=== PATIENT | female | born 1955 ===

== ENCOUNTER 2018-01-22 12:43 | Observation (INO) | payer MEDICAID ==
[2018-01-22 12:52] VITALS: BMI 21.9
[2018-01-22] MEDS ORDERED: Albuterol 0.083% Inhal Sol (2.5 mg/3 mL) UD INH STA (13:23)
[2018-01-22] MEDS ORDERED: cefTRIAXone IV 1 gm in Dextros 50 ML IV STA (13:23)
--- NOTE | 2018-01-22 13:23 | C.PDOC ---
History Of Present Illness COUGH, JACOBSON, PLEURITIC PAIN SUBJ FEVER X 1 WEEK. DENIES HO ASTHMA, COPD, SMOKING. NO LEG SWELL EXAM NARD NONTOXIC HEENT NEG LUNGS NEG NO EDEMA REMAINDER NEG Time Seen by Provider: 01/22/18 13:12 Chief Complaint (Nursing): Cough, Cold, Congestion History Per: Patient History/Exam Limitations: no limitations Current Symptoms Are (Timing): Still Present Past Medical History Reviewed: Historical Data, Nursing Documentation, Vital Signs Vital Signs: Last Vital Signs Temp 98.7 F 01/22/18 16:14 Pulse 74 01/22/18 16:14 Resp 22 01/22/18 16:14 BP 126/67 01/22/18 16:14 Pulse Ox 91 L 01/22/18 16:21 - Medical History PMH: HTN, Hypercholesterolemia, Hypothyroidism Family History: States: No Known Family Hx - Social History Hx Alcohol Use: No Hx Substance Use: No - Immunization History Hx Tetanus Toxoid Vaccination: No Hx Influenza Vaccination: No Hx Pneumococcal Vaccination: No Review Of Systems Constitutional: Positive for: Fever Cardiovascular: Negative for: Palpitations, Edema, Light Headedness Respiratory: Positive for: Cough, SOB with Excertion, Pleuritic Pain Gastrointestinal: Negative for: Vomiting Musculoskeletal: Negative for: Leg Pain Neurological: Negative for: Weakness, Numbness, Headache, Dizziness Physical Exam - Physical Exam Appears: Non-toxic, No Acute Distress Skin: Normal Color, Warm, Dry, No Rash Head: Atraumatic, Normacephalic Eye(s): bilateral: PERRL Nose: Normal Oral Mucosa: Moist Lips: Normal Appearing Neck: Normal ROM Cardiovascular: Rhythm Regular, No Murmur Respiratory: Normal Breath Sounds, No Accessory Muscle Use Extremity: Normal ROM, No Pedal Edema, No Deformity, No Swelling Neurological/Psych: Oriented x3, Normal Speech ED Course And Treatment - Laboratory Results Result Diagrams: 01/22/18 13:40 01/22/18 13:40 ECG: Interpreted By Me, Viewed By Me ECG Rhythm: Sinus Rhythm ECG Interpretation: No Acute Changes Rate From EC O2 Sat by Pulse Oximetry: 91 (RA) Pulse Ox Interpretation: Abnormal - Radiology CXR: Interpreted by Me CXR Interpretation: Yes: No Acute Disease Progress - Re-Evaluation Re-evaluation Note: 01/22/18 15:31 PERSIST HYPOXIA, IMPROVES W O2. PT NOW ADMITS TO HO SMOKING BUT STOPPED "A LONG TIME AGO". AGREES W ADMISSION. PMD IN [facility] 01/22/18 15:49 D/W DR VALDEZ HAMMONDS [employer] WILL ADMIT - Data Reviewed Data Reviewed: Lab, Diagnostic imaging, Old records - Continuity of Care Discussed patient case with:: Patient, On-call PMD-pt unassigned Disposition Counseled Patient/Family Regarding: Studies Performed, Diagnosis - Disposition Disposition: HOSPITALIZED Disposition Time: 15:50 Condition: STABLE - POA Present On Arrival: None - Clinical Impression Clinical Impression: Bronchitis, Hypoxia - Scribe Statement The provider has reviewed the documentation as recorded by the Scribe (Placido Metcalf) All medical record entries made by the Scribe were at my direction and personally dictated by me. I have reviewed the chart and agree that the record accurately reflects my personal performance of the history, physical exam, medical decision making, and the department course for this patient. I have also personally directed, reviewed, and agree with the discharge instructions and disposition. Decision To Admit - Pt Status Changed To: Hospital Disposition Of: Observation - . Bed Request Type: Regular Admitting Physician: Vicki Greenberg Patient Diagnosis: Bronchitis, Hypoxia
[2018-01-22] MEDS ORDERED: cefTRIAXone IV 1 gm in Dextros 50 ML IVPB ONE (13:32)
[2018-01-22] MEDS ORDERED: Albuterol 0.083% Inhal Sol (2.5 mg/3 mL) UD ONE (13:32)
--- NOTE | 2018-01-22 13:33 | RAD ---
PROCEDURE: CHEST RADIOGRAPH, 1 VIEW HISTORY: Cough and hypoxia COMPARISON: None available. FINDINGS: LUNGS: The lungs are hyperinflated and there is peribronchial thickening with chronic changes in both lungs. No focal consolidation. PLEURA: No pneumothorax or pleural fluid seen. CARDIOVASCULAR: The heart is normal in size. Atherosclerotic aortic arch calcifications are present. OSSEOUS STRUCTURES: No significant abnormalities. VISUALIZED UPPER ABDOMEN: Normal. OTHER FINDINGS: None. IMPRESSION: No active pulmonary disease. COPD.
[2018-01-22] MEDS ORDERED: Azithromycin 500mg/250ML NS 500 MG/250 ML BAG IV STA (13:38)
[2018-01-22 13:45] LABS: BASO % 0.4 % (0.0-2.0); EOS # 0.3 K/uL (0.0-0.7); EOS % 4.4 % (0.0-4.0); HEMOGLOBIN 15.1 g/dL (11.0-16.0); LYMPH % 32.1 % (20.0-40.0); MEAN CELL VOLUME 91.7 fL (81.0-99.0); MEAN CORPUSCULAR HEMOGLOBIN 30.7 pg (27.0-31.0); MEAN CORPUSCULAR HGB CONC 33.5 g/dL (33.0-37.0); MEAN PLATELET VOLUME 8.5 fL (7.2-11.7); MONO # 0.4 K/uL (0.0-0.8); MONO % 7.1 % (0.0-10.0); NEUT # 3.5 K/uL (1.8-7.0); NRBC % 0.2 % (0.0-2.0); RBC 4.92 Mil/uL (3.80-5.20); RED CELL DISTRIBUTION WIDTH 14.1 % (11.5-14.5); WHITE BLOOD COUNT 6.3 K/uL (4.8-10.8)
[2018-01-22 13:59] LABS: ALB/GLOB RATIO 1.1 (1.0-2.1); ALBUMIN 4.1 g/dL (3.5-5.0); ALT/SGPT 16 U/L (9-52); AST/SGOT 33 U/L (14-36); BLOOD UREA NITROGEN 10 mg/dL (7-17); CALCIUM 9.4 mg/dl (8.6-10.4); GFR AFRICAN-AMERICAN > 60; GFR NON-AFRICAN AMERICAN > 60
[2018-01-22 17:41] VITALS: RESP 20
[2018-01-22] MEDS ORDERED: Azithromycin 500 MG in Sodium Chloride 0.9% 250 ML IVPB SCH (18:00)
[2018-01-22] MEDS ORDERED: Azithromycin 500mg/250ML NS 500 MG/250 ML BAG IVPB SCH (18:00)
[2018-01-22] MEDS: MethylPREDNISolone 40 mg Vial IV SCH (18:11)
[2018-01-22] MEDS: Albuterol-Ipratrop 3 mg / 0.5 (3 ml) UD INH SCH (23:55)
[2018-01-23] MEDS: MethylPREDNISolone 40 mg Vial IV SCH ×3 (01:57→17:17)
[2018-01-23] MEDS: Albuterol-Ipratrop 3 mg / 0.5 (3 ml) UD INH SCH ×5 (03:34→19:00)
[2018-01-23] MEDS: Enoxaparin 40 mg Syringe SC SCH (09:07)
--- NOTE | 2018-01-23 09:11 | CP.PCM.PN ---
Subjective - Date & Time of Evaluation Date of Evaluation: 01/23/18 Time of Evaluation: 09:02 - Subjective Subjective: PGY2 note for Dr. Greenberg's service: Pt seen and examined at bedside. Nursing reports no acute events overnight. Patient states her cough and breathing has improved since receiving IV steroids and breathing treatments. However when patient walked around the department she desaturated to 86% and had coughing fit. Patient admits rib pain with cough. Denies fever, chills, chest pain, dizziness, dyspnea at rest. ____ Patient is a 62yo female, with PMHx of HTN, hyperlipidemia, COPD, reports she has had c/o cough and congestion with fever x 6 days. Initially had clear phlegm for first three days. Also reports chest pain with coughing. Objective - Vital Signs/Intake and Output Vital Signs (last 24 hours): Temp Pulse Resp BP Pulse Ox 98.2 F 79 20 121/66 96 01/23/18 07:51 01/23/18 07:51 01/23/18 07:51 01/23/18 07:51 01/23/18 08:00 - Medications Medications: Current Medications Albuterol/Ipratropium (Duoneb 3 Mg/0.5 Mg (3 Ml) Ud) 3 ml INH RQ4 [facility] Last Admin: 01/23/18 07:10 Dose: 3 ml Enoxaparin Sodium (Lovenox) 40 mg SC DAILY [facility] Ceftriaxone Sodium (Rocephin Iv 1 Gm Duplex) 50 mls @ 100 mls/hr IVPB DAILY [facility] PRN Reason: Protocol Azithromycin 500 mg/ Sodium (Chloride) 250 mls @ 167 mls/hr IVPB Q24H [facility] PRN Reason: Protocol Methylprednisolone (Solu-Medrol) 40 mg IV Q8H [facility] Last Admin: 01/23/18 01:57 Dose: 40 mg - Labs Labs: 01/22/18 13:40 01/22/18 13:40 - Constitutional Appears: Non-toxic, No Acute Distress - Head Exam Head Exam: ATRAUMATIC, NORMAL INSPECTION - Eye Exam Eye Exam: EOMI. absent: Scleral icterus Pupil Exam: PERRL - ENT Exam ENT Exam: Mucous Membranes Moist - Neck Exam Neck Exam: Full ROM - Respiratory Exam Respiratory Exam: Wheezes, NORMAL BREATHING PATTERN - Cardiovascular Exam Cardiovascular Exam: REGULAR RHYTHM, +S1, +S2 - GI/Abdominal Exam GI & Abdominal Exam: Soft, Normal Bowel Sounds. absent: Tenderness - Extremities Exam Extremities Exam: Normal Inspection - Back Exam Back Exam: absent: CVA tenderness (L), CVA tenderness (R) - Neurological Exam Neurological Exam: Alert, Awake, Oriented x3 - Psychiatric Exam Psychiatric exam: Normal Affect, Normal Mood - Skin Skin Exam: Normal Color, Warm Assessment and Plan - Assessment and Plan (Free Text) Plan: Bronchitis vs COPD exac Observe on tele Afebrile, No WBC Denies home oxygen; former smoker Patient desaturated to 87%/coughing fit after walking around nursing station CXR (01/22/18): NAD Solumedrol 40mg IV Q8H Duonebs Q4H Robitussin PO Q4H PRN Discontinue Ceftriaxone, Azithromycin HTN Well-controlled Amlodipine 5mg PO daily Hyperthyroidism Methimazole 10mg PO Daily Prophylaxis Lovenox 40mg SC Daily SCDs GI not indicated Disposition: Pt for possible dc tomorrow if no desaturation with walking, less coughing. If same, will consider CT. Darwin Iniguez PGY-2 D/w Dr. Greenberg
[2018-01-23] MEDS ORDERED: cefTRIAXone IV 1 gm in Dextros 50 ML IVPB SCH (10:00)
[2018-01-23] MEDS ORDERED: Azithromycin 500 MG in Sodium Chloride 0.9% 250 ML IVPB SCH (18:00)
[2018-01-23] MEDS ORDERED: guaiFENesin 100 mg/5 ml Syrup UD PO PRN (18:53)
[2018-01-24] MEDS: Albuterol-Ipratrop 3 mg / 0.5 (3 ml) UD INH SCH ×3 (00:28→07:45)
[2018-01-24] MEDS: MethylPREDNISolone 40 mg Vial IV SCH ×2 (01:44→09:21)
--- NOTE | 2018-01-24 06:14 | HP ---
HISTORY OF PRESENT ILLNESS: This is a 62-year-old female with history of COPD, chief complain cough, shortness of breath, wheezing, fatigue, tiredness. The patient came to the ER, advised admission. PHYSICAL EXAMINATION: GENERAL: The patient is awake, alert, and oriented . VITAL SIGNS: Temperature 98 and pulse 90. HEENT: Within normal limits. NECK: Supple. CHEST: Symmetrical bilateral wheezing. HEART: Regular. ABDOMEN: Soft. EXTREMITIES: No edema. IMPRESSION: The patient has exacerbation of chronic obstructive pulmonary disease with bronchitis. Vicki Greenberg MD
[2018-01-24 06:23] LABS: BASO % 0.3 % (0.0-2.0); HEMOGLOBIN 13.8 g/dL (11.0-16.0); LYMPH # 0.6 K/uL (1.0-4.3); LYMPH % 6.4 % (20.0-40.0); MEAN CELL VOLUME 91.5 fL (81.0-99.0); MEAN CORPUSCULAR HEMOGLOBIN 31.1 pg (27.0-31.0); MEAN PLATELET VOLUME 8.2 fL (7.2-11.7); MONO # 0.3 K/uL (0.0-0.8); MONO % 2.9 % (0.0-10.0); NEUT # 9.1 K/uL (1.8-7.0); NEUT % 90.4 % (50.0-75.0); PLATELET COUNT 203 K/uL (130-400); RBC 4.43 Mil/uL (3.80-5.20); RED CELL DISTRIBUTION WIDTH 14.2 % (11.5-14.5)
[2018-01-24 06:37] LABS: ALB/GLOB RATIO 1.3 (1.0-2.1); ALT/SGPT 13 U/L (9-52); AST/SGOT 31 U/L (14-36); BLOOD UREA NITROGEN 18 mg/dL (7-17); CALCIUM 9.4 mg/dl (8.6-10.4); GFR AFRICAN-AMERICAN > 60; GFR NON-AFRICAN AMERICAN > 60
[2018-01-24 07:30] VITALS: BP 107/62; PULSE 90; TEMP 97.7; O2SAT 95
--- NOTE | 2018-01-24 09:01 | CP.PCM.PN ---
Subjective - Date & Time of Evaluation Date of Evaluation: 01/24/18 Time of Evaluation: 10:40 - Subjective Subjective: PGY 2 Medicine Progress Note- Dr. Greenberg's service Patient seen and examined in no apparent acute distress. Patient states that she feels better. She denies acute complaints. She feels ready to go home. Objective - Vital Signs/Intake and Output Vital Signs (last 24 hours): Temp Pulse Resp BP Pulse Ox 97.7 F 90 20 107/62 95 01/24/18 07:27 01/24/18 07:27 01/24/18 07:27 01/24/18 07:27 01/24/18 07:27 Intake and Output: 01/24/18 01/24/18 06:59 18:59 Intake Total 300 Output Total 400 Balance -100 - Medications Medications: Current Medications Albuterol/Ipratropium (Duoneb 3 Mg/0.5 Mg (3 Ml) Ud) 3 ml INH RQ4 [facility] Last Admin: 01/24/18 07:45 Dose: 3 ml Amlodipine Besylate (Norvasc) 5 mg PO DAILY [facility] Enoxaparin Sodium (Lovenox) 40 mg SC DAILY [facility] Last Admin: 01/23/18 09:07 Dose: 40 mg Guaifenesin (Robitussin) 100 mg PO Q4H PRN PRN Reason: Cough Methimazole (Tapazole) 10 mg PO DAILY [facility] Methylprednisolone (Solu-Medrol) 40 mg IV Q8H [facility] Last Admin: 01/24/18 01:44 Dose: 40 mg Pneumococcal Polyvalent Vaccine (Pneumovax 23 Vaccine) 0.5 ml IM .ONCE ONE Stop: 01/24/18 10:01 - Labs Labs: 01/24/18 06:15 01/24/18 06:15 - Constitutional Appears: Non-toxic, No Acute Distress - Head Exam Head Exam: ATRAUMATIC, NORMAL INSPECTION - Eye Exam Eye Exam: EOMI, Normal appearance, PERRL Pupil Exam: NORMAL ACCOMODATION - ENT Exam ENT Exam: Mucous Membranes Moist - Neck Exam Neck Exam: Full ROM - Respiratory Exam Respiratory Exam: NORMAL BREATHING PATTERN. absent: Wheezes - Cardiovascular Exam Cardiovascular Exam: +S1, +S2 - GI/Abdominal Exam GI & Abdominal Exam: Soft, Normal Bowel Sounds - Extremities Exam Extremities Exam: Full ROM, Normal Inspection - Back Exam Back Exam: Full ROM, NORMAL INSPECTION - Neurological Exam Neurological Exam: Alert, Awake, Oriented x3 - Psychiatric Exam Psychiatric exam: Normal Affect, Normal Mood - Skin Skin Exam: Normal Color, Warm Assessment and Plan - Assessment and Plan (Free Text) Assessment: Bronchitis vs COPD exacerbation Observe on tele Afebrile, No WBC No leukocytosis Denies home oxygen; former smoker Periodic desaturation with ambulation CXR (01/22/18): no active disease; hyperinflation of lungs Solumedrol 40mg IV Q8H Duonebs Q4H Robitussin PO Q4H PRN antibiotics discontinued HTN Normotensive Amlodipine 5mg PO daily Cont. to monitor Hyperthyroidism Methimazole 10mg PO Daily Prophylaxis Lovenox 40mg SC Daily SCDs GI Prophylaxis not indicated DC Instructions Patient is medically stable for discharge home. Patient to follow up with primary medical doctor within one week. Patient to resume home medications. Patient will be provided with a ventolin inhaler. If symptoms return, go to the emergency room. Instructions explained to patient who is aware. Discussed with attending. Planning and management per Dr. Greenberg
[2018-01-24] MEDS: Enoxaparin 40 mg Syringe SC SCH (09:14)
[2018-01-24 09:27] LABS: BANDS 2 % (0-2); LYMPHOCYTE 7 % (20-40); MONOCYTE 3 % (0-10); NEUTROPHIL 87 % (50-75); REACTIVE LYMPHOCYTES 1 % (0-0); TOTAL CELLS COUNTED 100
[2018-01-24 09:28] LABS: PLATELET ESTIMATE NORMAL (NORMAL)
[2018-01-24] MEDS ORDERED: Pneumococcal 23-Valent Vaccine IM ONE (10:00)
--- NOTE | 2018-01-24 13:20 | CARD ---
APPROVED REPORT EKG Measurement Heart [id number] <Conclusion> Normal sinus rhythm Normal ECG
--- NOTE | 2018-01-27 11:34 | DS ---
DATE: 01/24/2018 The patient was admitted to the hospital complaining of shortness of breath, chest pain, wheezing. The patient getting bed rest, supportive care, bronchodilators, steroids. Patient showing gradual improvement. Discharged to be followed up as outpatient. Vicki Greenberg MD
== END 2018-01-24 13:56 | disposition home or self-care (01) ==
LOC: C.ER 12:43 → C.9E 15:52 → C.3T 16:42
PROVIDERS: ADMIT Internal Medicine Pulmonary Disease; ATTEND Internal Medicine Pulmonary Disease
DX: J44.9 Chronic obstructive pulmonary disease, unspecified (principal); I10 Essential (primary) hypertension; E78.00 Pure hypercholesterolemia, unspecified; R09.02 Hypoxemia; Z87.891 Personal history of nicotine dependence; E05.90 Thyrotoxicosis, unspecified without thyrotoxic crisis or storm; Z23 Encounter for immunization
CPT/HCPCS: 36415; 71045; 80053; 83735; 84100; 85025; 87040; 90471; 90732; 93005; 94640; 96361; 96365; 96366; 96367; 96372; 96375; 96376; 99285; G0378; J0456; J0696; J1650; J2920

== ENCOUNTER 2018-12-09 09:28 | Emergency (ER) | payer MEDICAID ==
[2018-12-09 09:29] VITALS: BMI 21.9
[2018-12-09 09:40] VITALS: BP 133/77; PULSE 90; RESP 18; TEMP 98.1; O2SAT 100
--- NOTE | 2018-12-09 09:57 | C.PDOC ---
History Of Present Illness Pt c/o pain in b/l knee and right hip area. Denies injury. Time Seen by Provider: 12/09/18 09:43 Chief Complaint (Nursing): Lower Extremity Problem/Injury History Per: Patient, Family Onset/Duration Of Symptoms: Days, Waxing/Waning, Gradual Current Symptoms Are (Timing): Still Present Severity: Moderate Additional History Per: Prior Records Past Medical History Reviewed: Historical Data, Nursing Documentation, Vital Signs Vital Signs: Last Vital Signs Temp 98.1 F 12/09/18 09:38 Pulse 90 12/09/18 09:38 Resp 18 12/09/18 09:38 BP 133/77 12/09/18 09:38 Pulse Ox 100 12/09/18 09:38 - Medical History PMH: HTN, Hypercholesterolemia, Hypothyroidism Family History: States: Unknown Family Hx - Social History Hx Alcohol Use: No Hx Substance Use: No - Immunization History Hx Tetanus Toxoid Vaccination: No Hx Influenza Vaccination: No Hx Pneumococcal Vaccination: No Review Of Systems Except As Marked, All Systems Reviewed And Found Negative. Constitutional: Negative for: Fever Cardiovascular: Negative for: Chest Pain Respiratory: Negative for: Shortness of Breath Gastrointestinal: Negative for: Vomiting, Abdominal Pain, Diarrhea Genitourinary: Negative for: Dysuria, Frequency, Hematuria, Vaginal Discharge, Vaginal Bleeding Musculoskeletal: Negative for: Back Pain, Leg Pain, Foot Pain Skin: Negative for: Rash Neurological: Negative for: Weakness, Numbness Physical Exam - Physical Exam Appears: Non-toxic, No Acute Distress Skin: Normal Color, Warm, Dry, No Rash Head: Atraumatic, Normacephalic Eye(s): bilateral: Normal Inspection, PERRL, EOMI Neck: Normal ROM, Supple Back: Normal Inspection, No CVA Tenderness, No Vertebral Tenderness Extremity: Normal ROM, Tenderness (b/l anterior knees), No Pedal Edema, No Calf Tenderness, No Deformity Extremity: Bilateral: Normal Color And Temperature Neurological/Psych: Oriented x3, Normal Motor, Normal Sensation ED Course And Treatment O2 Sat by Pulse Oximetry: 100 Pulse Ox Interpretation: Normal Disposition Counseled Patient/Family Regarding: Diagnosis, Need For Followup, Rx Given - Disposition Disposition: HOME/ ROUTINE Disposition Time: 09:58 Condition: STABLE Additional Instructions: Follow up with your doctor for further evaluation and treatment. Return to the ER if you develop redness, swelling, fever, worsening of symptoms or if you have any other concerns. Prescriptions: Meloxicam 7.5 mg PO DAILY PRN #30 tablet PRN Reason: Pain, Moderate (4-7) Instructions: Knee Pain (DC) Forms: [employer] (Lithuanian) Print Language: MAORI - Clinical Impression Clinical Impression: Knee pain, bilateral, Pain in right hip
== END 2018-12-09 10:20 | disposition home or self-care (01) ==
LOC: C.ER 09:28
DX: M25.562 Pain in left knee (principal); M25.561 Pain in right knee; M25.551 Pain in right hip